=== PATIENT | female | born 2000 | race Caucasian/White ===

== ENCOUNTER 2024-03-31 20:18 | Emergency (ER) | payer SELFPAY ==
[~2024-03-31] VITALS: Ht 157.5 cm; Wt 65.8 kg
[2024-03-31] MEDS ORDERED: Ibuprofen 600 MG Tab PO ONE (21:30)
[2024-03-31] MEDS ORDERED: Pseudoephedrine HCl 30 MG Tab PO ONE (21:30)
[2024-03-31] MEDS ORDERED: PSEUDOEPHEDRINE PO (22:14)
[2024-03-31] MEDS ORDERED: IBUP600 PO (22:14)
== END 2024-03-31 22:22 | disposition home or self-care (01) ==
LOC: ER 20:18
DX: J02.9 Acute pharyngitis, unspecified (principal); H92.02 Otalgia, left ear
CPT/HCPCS: 87081; 87147; 87430; 99283; A9270